=== PATIENT | female | born 1945 | race Asian ===

== ENCOUNTER → 2016-10-14 | Outpatient (CLI) | payer MEDICARE, OTHER ==
[~2016-10-14] MED LIST: ADVAIR IH; ALAVERT10 MG PO; ALBUTEROL17 G1 IH; CALCIUM + D 6001 TA1 PO; CENTRUM COMPLE1 EACH PO; CRESTOR10 MG PO; LASIX20 MG PO; NORVASC2.5 MG PO; TOPROL XL PO
--- NOTE | ~2016-10-14 | MY29 ---
[facility] A Service of [facility] RADIOLOGY TEXT RESULTS PATIENT: JERRELL PIZANO LOCATION: [facility] : 43 UNIT #: [id number] AGE: [address]: Rafia Brown MD SEX: F ORDER DR: [id number] [facility] [address] [place], [place] [address] [id number] O MR#: [id number] Acc #: [id number] NAME: JERRELL PIZANO : 1945 SEX: F STUDY DATE/TIME: 10/14/2016 13:40 UNIT: [facility] ROOM: STUDY DESCRIPTION: MY IFTIKHAR SCREENING W/ CAD BILAT Attending Physician: Rafia Brown M.D. Referring Physician: Rafia Brown M.D. Ordering Physician: Rafia Brown M.D. Primary Care Physician: Rafia Brown M.D. MEDICAL IMAGING REPORT This report is preliminary unless electronic signature is present EXAM Digital screening mammogram 10/14/2016 HISTORY 71-year-old woman, no risk elevation. Annual screening. COMPARISON STUDIES Comparison mammograms date to 07/11/2006 with most recent 09/16/2015. FINDINGS Digital imaging of each breast was completed utilizing a two-view examination of each breast in craniocaudal and mediolateral-oblique projections. Review and interpretation of digital mammograms include a second review in conjunction with FDA-approved CAD device. There is a normal parenchymal presentation bilaterally consistent with the patient's age. There are no breast masses imaged and no parenchymal asymmetry is visualized. There are no suspicious microcalcifications and I see no focal architectural disturbance. IMPRESSION Negative screening digital mammogram. One-year followup recommended. Patients over the age of 40 are entered into a reminder system with target due date for the next mammogram. A result letter will also be sent to the patient. BIRADS: 1 Negative Dictated by... Christiano Damon M.D. [facility] A Service of [facility] RADIOLOGY TEXT RESULTS PATIENT: JERRELL PIZANO LOCATION: [facility] : 43 UNIT #: [id number] AGE: [address]: Rafia Brown MD SEX: F ORDER DR: THIS IS AN ELECTRONICALLY VERIFIED REPORT Christiano Damon M.D. at 10/15/2016 8:07 AM JBB/pcl TD: 10/14/2016 15:50 JOB #: [id number] MEDICAL IMAGING REPORT Page 1 of 1 COPY
== END | disposition home or self-care (01) ==
LOC: CWCC 12:30
DX: Z12.31 Encounter for screening mammogram for malignant neoplasm of breast (principal)
CPT/HCPCS: G0202

== ENCOUNTER → 2016-11-24 | Outpatient (CLI) | payer MEDICARE, OTHER ==
--- NOTE | ~2016-11-24 | BD1 ---
[facility] A Service of [facility] RADIOLOGY TEXT RESULTS PATIENT: JERRELL IZAGUIRRE LOCATION: [facility] : 43 UNIT #: [id number] AGE: [address]: AKBAR OSBORNE SEX: F ORDER DR: [id number] [facility] [address] [place], [place] [address] [id number] O MR#: [id number] Acc #: [id number] NAME: JERRELL IZAGUIRRE : 1945 SEX: F STUDY DATE/TIME: 11/24/2016 12:07 UNIT: [facility] ROOM: STUDY DESCRIPTION: BD Dexa Bone Dens 1+ Site Attending Physician: Ren Raymundo Referring Physician: Rafia Brown M.D. Ordering Physician: Ren Raymundo Primary Care Physician: Rafia Brown M.D. MEDICAL IMAGING REPORT This report is preliminary unless electronic signature is present EXAM DXA scan, 11/24/2016. HISTORY Status post menopause with no hormone replacement therapy. Osteopenia. Hysterectomy at age 57 with removal of both ovaries. Hypertension with blood pressure medication for 10 years. Fracture of humerus in last 10 years. FINDINGS Bone mineral density in the lumbar spine from L1 through L4 is 0.862 g/cm2 which is 1.7 standard deviations below the mean when compared to the young adult reference population which is characteristic of osteopenia. This is 0.6 standard deviations above the mean when compared to the age-matched population. Compared with 08/14/2014, there has been an increase in bone mineral density in the lumbar spine of 4%. Bone mineral density in the left femoral neck was 0.967 g/cm2 which is 1.1 standard deviations above the mean when compared to the young adult reference population which is within the range of normal. This is 3 standard deviations above the mean when compared to the age-matched population. Compared with 08/14/2014, there has been a decrease in bone mineral density in the left hip of 0.3%. IMPRESSION Bone mineral density in the lumbar spine characteristic of osteopenia and within the left hip within the range of normal. Compared with 08/14/2014, there has been an increase in bone mineral density in the lumbar spine and a decrease in bone mineral density in the left hip. Dictated by... Talat Maharaj M.D. [facility] A Service of [facility] RADIOLOGY TEXT RESULTS PATIENT: JERRELL IZAGUIRRE [facility]: [id number] : 43 UNIT #: [id number] AGE: [address]: AKBAR OSBORNE SEX: F ORDER DR: THIS IS AN ELECTRONICALLY VERIFIED REPORT Talat Maharaj M.D. at 11/26/2016 7:44 AM MARC/trixie TD: 11/25/2016 00:05 JOB #: [id number] MEDICAL IMAGING REPORT Page 1 of 1 COPY
== END | disposition home or self-care (01) ==
LOC: CWCC 11:30
DX: M85.80 Other specified disorders of bone density and structure, unspecified site (principal); Z78.0 Asymptomatic menopausal state
CPT/HCPCS: 77080